=== PATIENT | female | born 1990 | race Caucasian/White ===

== ENCOUNTER 2022-08-23 04:41 | Observation (INO) ==
[2022-08-23] MEDS ORDERED: SODIUM CHLORIDE 0.9% 1000ML 1,000 ML IV ONE (04:58)
[2022-08-23] MEDS ORDERED: diphenhydrAMINE 50 MG/ML VIAL IV STA (04:58)
[2022-08-23] MEDS ORDERED: FAMOTIDINE 20MG IV PUSH 20 MG/5 ML SYR IV STA (04:58)
[2022-08-23] MEDS ORDERED: EPINEPHrine INJ 1 MG/ML AMP IM STA ×2 (04:58→06:17)
[2022-08-23] MEDS ORDERED: dexAMETHasone**PF** 10 MG/ML VIAL IV ONE (04:58)
--- NOTE | 2022-08-23 05:02 | Emergency Department Note ---
Impression & Plan Anaphylaxis, Allergic drug reaction, Dental abscess ED Provider Note Name: SIMONA POTTS Age: 32 Sex: F Arrives Via: Walk-In Informant: Patient ED Provider: Mario Wright MD Chief Complaint: Rash Impression: As per impressions above Medical Decision Makin-year-old healthy female arrives for evaluation of diffuse rash. Patient was seen here in the ED 4 days ago for allergic reaction to Augmentin that she had been on for dental abscess. She had been given steroids Pepcid and 3-day course of prednisone and switched from Augmentin to clinda. Patient notes initially improving though this morning had significant worsening of her rash. Notes diffuse rash, mild chest tightness. No significant difficulty with breathing on examination however given the degree of her rash and the swelling in her years the lower lip I felt that epinephrine was indicated. Patient was also given Decadron, Benadryl, Pepcid, IV fluids. She did have mild improvement though after about an hour rash started returning she was given another dose of IM epinephrine. She is not hypotensive she is not having significant respiratory distress thus would hold off on epinephrine drip however in the setting of recurrence and degree I do feel that she will require hospitalization and prolonged monitoring. Patient is comfortable with this plan. I did obtain basic laboratory work-up which is essentially unremarkable and mild white blood cell count elevation is consistent with recent steroid use. She is not septic or in septic shock at this time. Triage/Nursing Notes reviewed by Me Differentials:Allergic reaction, anaphylaxis, urticaria, Serna-Sujit syndrome, toxic epidermal necrolysis, erythema multiforme, contact dermatitis, cellulitis, as well as other pathologies. Vital Signs: reviewed and remarkable for no significant abnormalities Interventions: Epinephrine 0.5 mg IM, epinephrine 0.3 mg IM, Decadron 10 mg IV, Benadryl 50 mg IV, Pepcid 20 mg IV, normal saline bolus 1 L Labs:Reviewed and remarkable for essentially unremarkable CBC, BMP, LFTs Consults:Dr Topher Carlos hospitalist service Plan: Disposition:Hospitalization. Condition: Good History of Present Illness:32-year-old female arrives for evaluation of allergic reaction. Patient was being treated with Augmentin for a left upper dental abscess and developed a rash 3 days ago. She was seen in the ER and treated with steroids and Pepcid. She was switched to clindamycin. She has been on steroids and using as needed Benadryl with some improvement. Over the last few hours though rapid worsening of rash. She has diffuse rash and hives. She notes significant itching. Mild swelling of her lips and ears. She does have a dental abscess that is not causing her much discomfort at this point. No fevers, chills, syncope. Does note that her chest feels relatively tight and feels like it is tough to take a deep breath but she is not having any specific breathing discomfort. No swelling in her hands or feet. No significant history of allergies previously other than this new allergy to Augmentin. She took Benadryl earlier in the evening without much improvement. Past History:No significant past medical history Home Medications:Currently on clindamycin. Just finished prednisone Allergies:Augmentin Vitals:Blood Pressure: 147/91, Pulse 99, RR 18, T 37.1C, O2 99% on RA Physical Exam: GENERAL: Patient is anxious appearing and in moderate distress. EYES: No scleral icterus, unremarkable pupils. ENT: Mucous membranes moist, no nasal congestion. Mild swelling of lower lip and bilateral ears. There is a 1 cm dental abscess palpable above the left lateral gumline nontender no crepitus NECK: No masses appreciated, nomeningismus, trachea is midline. RESPIRATORY: No dyspnea. Clear to auscultation and equal bilaterally. No wheeze, no rhonchi. CARDIOVASCULAR: Tachycardia.No murmurs, rubs, gallops appreciated. EXTREMITIES: Normal motion all extremities, no cyanosis, no edema. NEUROLOGIC: Alert and oriented, no focal neurologic deficit appreciated SKIN: Diffuse erythema of face, neck, chest, back with small papular rash over most of legs and arms coalescing into larger hives in places. PSYCH: Appropriate though moderately anxious GCS: 15 ED Course: Times/Reassessments: Initially improving however after about an hour started worsening and thus was given second dose of epi. Patient did improve somewhat after this. She is agreeable to hospitalization for further management and monitoring Critical Care: I have personally spent 35 minutes of critical care time in the direct management of this patient. Acute anaphylaxis requiring multiple rounds of epinephrine IM. This was a life/limb threatening event. This 35 minutes is in excess of all separately billable procedures. Mario Wright MD Past Med/Surg History Social History Smoking Status: Never smoker Hx Alcohol Use: Yes Hx Substance Use: Yes Last Used Substance: Days (ago) Last Used Substance Other:: about 10 days ago. Substance Use Type Other:: Smokes medical marijuana some days. Preferred Language: Kyrgyz Communication Ability: Effective Transport Specialist Required: No Beliefs That Will Affect Care: None Current Living Situation: Spouse Feels Safe at Home: Yes Assistive Devices: None Allergies Allergies Allergy/AdvReac Type Severity Reaction Status Date / Time amoxicillin [From Augmentin] Allergy Severe Severe Unverified 08/23/22 08:18 full body rash clavulanic acid Allergy Severe Severe Unverified 08/23/22 08:18 [From Augmentin] full body rash Penicillins Allergy Severe Hives Verified 08/23/22 11:35 Home Meds Home Medications Medication Instructions Recorded Confirmed azelastine 0.05 % eye drops 1 drp OPB BID PRN Allergy Symptoms 08/23/22 08/23/22 norethindrone acetate 1 mg-ethinyl 1 tab PO DAILY 08/23/22 08/23/22 estradiol 20 mcg tablet (Junel) Previous Rx's Medication Instructions Recorded clindamycin HCl 150 mg capsule 450 mg PO Q8H 10 days #90 caps 08/21/22 prednisone 10 mg tablet See Rx Instructions .Route 08/24/22 .COMPLEX #18 tabs Results & Data (ED) Vital Signs Vital Signs - 24 hr 08/23/22 04:43 08/23/22 05:18 08/23/22 05:27 Temperature 37.1 C Temperature Source Temporal Artery Scan Pulse Rate 99 H 97 H Pulse Rate [Apical] 85 Pulse Rhythm Regular Pulse Strength Normal Respiratory Rate 18 20 Respiratory Effort / Characteristics Non-Labored Spontaneous Non-Labored Spontaneous Respiratory Depth Normal Normal Respiratory Pattern Regular Blood Pressure 147/91 H Blood Pressure [Right Arm] 126/83 Blood Pressure Mean 109 Blood Pressure Mean [Right Arm] 97 Blood Pressure Position Sitting Blood Pressure Position [Right Arm] Sitting Pulse Oximetry 99 100 Oxygen Delivery Method Room Air Room Air Sepsis Recent Fever Within 48 Hours No Sepsis New/Unexplained Change in Mental Status No Sepsis Action Taken by Nursing No Action Required 08/23/22 06:42 Temperature Temperature Source Pulse Rate Pulse Rate [Apical] 84 Pulse Rhythm Pulse Strength Respiratory Rate 18 Respiratory Effort / Characteristics Non-Labored Spontaneous Respiratory Depth Normal Respiratory Pattern Blood Pressure Blood Pressure [Right Arm] 132/79 Blood Pressure Mean Blood Pressure Mean [Right Arm] 96 Blood Pressure Position Blood Pressure Position [Right Arm] Sitting Pulse Oximetry 100 Oxygen Delivery Method Room Air Sepsis Recent Fever Within 48 Hours Sepsis New/Unexplained Change in Mental Status Sepsis Action Taken by Nursing Laboratory Data 08/23/22 05:06 08/23/22 05:06 Lab Results 08/23/22 08/23/22 08/23/22 Range/Units 05:06 05:06 05:06 WBC 12.74 H (4.8-10.8) K/ul RBC 4.64 (4.20-5.40) M/uL Hgb 14.3 (12.0-16.0) g/dl Hct 41.7 (37.0-47.0) % MCV 89.9 (80.0-100.0) fL MCH 30.8 (25.0-34.0) pg MCHC 34.3 (32.0-36.0) g/dL RDW Std Deviation 39.3 (36.4-46.3) fL RDW Coeff of Lindsay 12.0 (11.5-14.5) % Plt Count 237 (130-400) K/uL MPV 10.0 (9.4-12.4) fL Immature Gran % (Auto) 0.2 % Neut % (Auto) 68.5 % Lymph % (Auto) 15.8 % Newberry % (Auto) 8.4 % Eos % (Auto) 6.8 % Baso % (Auto) 0.3 % Neut # (Auto) 8.72 H (1.40-6.50) K/uL Lymph # (Auto) 2.01 (1.2-3.4) K/uL Newberry # (Auto) 1.07 H (0.11-0.59) K/uL Eos # (Auto) 0.87 H (0-0.50) K/uL Baso # (Auto) 0.04 (0-0.2) K/uL Immature Gran # (Auto) 0.03 (0.01-0.20) K/uL Sodium 140 (136-145) mmol/L Potassium 3.6 (3.5-5.1) mmol/L Chloride 106 (98-107) mmol/L Carbon Dioxide 25 (21-32) mmol/L Anion Gap 9 (3-11) BUN 13 (6-23) mg/dl Creatinine 1.07 (0.6-1.2) mg/dl Est Cr Clr Drug Dosing 75.5 ml/min Est GFR ( Amer) 79.0 ml/min Est GFR (Non-Af Amer) 68.2 ml/min BUN/Creatinine Ratio 12.1 (10-20) Glucose 76 (70-99(Fasting)) mg/dl Lactate 1.2 (0.4-2.0) mmol/L Calcium 9.8 (8.6-10.3) mg/dl Total Bilirubin 0.7 (0.2-1.0) mg/dl Direct Bilirubin 0.1 (0-0.2) mg/dl AST 13 (13-39) U/L ALT 14 (7-52) U/L Alkaline Phosphatase 53 (34-104) U/L Troponin I High Sens 3.4 (0-14) pg/ml Total Protein 7.3 (6.0-8.3) gm/dl Albumin 4.4 (3.4-5.0) gm/dl Procalcitonin (0-0.5) ng/ml 08/23/22 Range/Units 05:06 WBC (4.8-10.8) K/ul RBC (4.20-5.40) M/uL Hgb (12.0-16.0) g/dl Hct (37.0-47.0) % MCV (80.0-100.0) fL MCH (25.0-34.0) pg MCHC (32.0-36.0) g/dL RDW Std Deviation (36.4-46.3) fL RDW Coeff of Lindsay (11.5-14.5) % Plt Count (130-400) K/uL MPV (9.4-12.4) fL Immature Gran % (Auto) % Neut % (Auto) % Lymph % (Auto) % Newberry % (Auto) % Eos % (Auto) % Baso % (Auto) % Neut # (Auto) (1.40-6.50) K/uL Lymph # (Auto) (1.2-3.4) K/uL Newberry # (Auto) (0.11-0.59) K/uL Eos # (Auto) (0-0.50) K/uL Baso # (Auto) (0-0.2) K/uL Immature Gran # (Auto) (0.01-0.20) K/uL Sodium (136-145) mmol/L Potassium (3.5-5.1) mmol/L Chloride (98-107) mmol/L Carbon Dioxide (21-32) mmol/L Anion Gap (3-11) BUN (6-23) mg/dl Creatinine (0.6-1.2) mg/dl Est Cr Clr Drug Dosing ml/min Est GFR ( Amer) ml/min Est GFR (Non-Af Amer) ml/min BUN/Creatinine Ratio (10-20) Glucose (70-99(Fasting)) mg/dl Lactate (0.4-2.0) mmol/L Calcium (8.6-10.3) mg/dl Total Bilirubin (0.2-1.0) mg/dl Direct Bilirubin (0-0.2) mg/dl AST (13-39) U/L ALT (7-52) U/L Alkaline Phosphatase (34-104) U/L Troponin I High Sens (0-14) pg/ml Total Protein (6.0-8.3) gm/dl Albumin (3.4-5.0) gm/dl Procalcitonin < 0.05 (0-0.5) ng/ml Administered Medications Discontinued Medications Dexamethasone Sodium Phosphate (DexamethasonePf 10 Mg/Ml Vial) 10 mg IV NOW ONE Stop: 08/23/22 04:59 Last Admin: 08/23/22 05:04 Dose: 10 mg Documented By: CC Diphenhydramine HCl (Diphenhydramine 50 Mg/Ml Vial) 50 mg IV NOW STA Stop: 08/23/22 04:59 Last Admin: 08/23/22 05:04 Dose: 50 mg Documented By: CC Epinephrine HCl (Epinephrine Inj 1 Mg/Ml Amp) 0.5 mg IM NOW STA Stop: 08/23/22 04:59 Last Admin: 08/23/22 05:04 Dose: 0.5 mg Documented By: CC Epinephrine HCl (Epinephrine Inj 1 Mg/Ml Amp) 0.3 mg IM NOW STA Stop: 08/23/22 06:18 Last Admin: 08/23/22 06:29 Dose: 0.3 mg Documented By: FLOWER Famotidine (Pepcid 20mg Iv Push) 20 mg in 5 mls @ 2.5 mls/min IV NOW STA Stop: 08/23/22 04:59 Last Admin: 08/23/22 05:04 Dose: 2.5 mls/min Documented By: CHUCK Sodium Chloride (Nss 1000ml) 1,000 mls @ 999 mls/hr IV .Q1H1M ONE Stop: 08/23/22 05:58 Last Infusion: 08/23/22 06:43 Dose: 0 mls/hr Documented By: Admin: 08/23/22 05:07 Dose: 999 mls/hr Documented By: CHUCK Methylprednisolone 60 mg/ (Syringe) 1.5 mls @ 1.5 mls/min IV Q6H SHARON Stop: 09/22/22 09:59 Last Admin: 08/23/22 10:46 Dose: Not Given Documented By: FREDY Clindamycin Phosphate (Cleocin/D5w) 600 mg in 50 mls @ 100 mls/hr IV Q8H SHARON Stop: 09/02/22 09:59 Last Admin: 08/24/22 13:09 Dose: 100 mls/hr Documented By: Infusion: 08/24/22 05:08 Dose: 0 mls/hr Documented By: Admin: 08/24/22 04:38 Dose: 100 mls/hr Documented By: Infusion: 08/23/22 20:45 Dose: 0 mls/hr Documented By: RLRamón Admin: 08/23/22 20:23 Dose: 100 mls/hr Documented By: Infusion: 08/23/22 13:05 Dose: 0 mls/hr Documented By: Admin: 08/23/22 12:34 Dose: 100 mls/hr Documented By: FREDY Methylprednisolone 60 mg/ (Syringe) 0.96 mls @ 1.5 mls/min IV Q6H SHARON Stop: 09/22/22 10:44 Last Admin: 08/24/22 13:10 Dose: 1.5 mls/min Documented By: Admin: 08/24/22 05:12 Dose: 1.5 mls/min Documented By: Admin: 08/23/22 23:04 Dose: 1.5 mls/min Documented By: Admin: 08/23/22 18:25 Dose: 1.5 mls/min Documented By: Admin: 08/23/22 13:27 Dose: 1.5 mls/min Documented By: FREDY Discharge Plan Visit Data Chief Complaint: Allergic Reaction Stated Complaint: ALLERGIC REACTION SINCE SAT - RASH GETTING WORSE ED Provider: Mario Wright Discharge Problem: Anaphylaxis, Allergic drug reaction, Dental abscess Patient Disposition: Admitted As Inpatient Discharge Instructions Interventions: ED Discharge Assessment Last Done: 08/23/22 09:50 Anaphylaxis Qualifiers: Encounter type: initial encounter Qualified Code(s): T78.2XXA - Anaphylactic shock, unspecified, initial encounter Allergic drug reaction Qualifiers: Encounter type: initial encounter Qualified Code(s): T78.40XA - Allergy, unspecified, initial encounter
[2022-08-23 05:22] LABS: Basophils # (auto) 0.04 K/uL (0-0.2); Basophils % (auto) 0.3 %; Eosinophils # (auto) 0.87 K/uL (0-0.50); Eosinophils % (auto) 6.8 %; Hematocrit (blood only) 41.7 % (37.0-47.0); Hemoglobin 14.3 g/dl (12.0-16.0); Immature Granulocytes # (auto) 0.03 K/uL (0.01-0.20); Immature Granulocytes % (auto) 0.2 %; Lymphocytes # (auto) 2.01 K/uL (1.2-3.4); Lymphocytes % (auto) 15.8 %; Mean Corpuscular Hemoglobin 30.8 pg (25.0-34.0); Mean Corpuscular Hgb Conc 34.3 g/dL (32.0-36.0); Mean Corpuscular Volume 89.9 fL (80.0-100.0); Monocytes # (auto) 1.07 K/uL (0.11-0.59); Monocytes % (auto) 8.4 %; Neutrophils # (auto) 8.72 K/uL (1.40-6.50); Neutrophils % (auto) 68.5 %; Platelet Count 237 K/uL (130-400); RDW Standard Deviation 39.3 fL (36.4-46.3); Red Blood Count 4.64 M/uL (4.20-5.40); White Blood Count 12.74 K/ul (4.8-10.8)
[2022-08-23 05:38] LABS: Albumin Level 4.4 gm/dl (3.4-5.0); BUN Creatinine Ratio 12.1 (10-20); Bilirubin Direct 0.1 mg/dl (0-0.2); Bilirubin,Total 0.7 mg/dl (0.2-1.0); Calcium 9.8 mg/dl (8.6-10.3); Creatinine Clr Calc Pharmacy 75.5 ml/min; Est GFR (Non-African American) 68.2 ml/min; Potassium 3.6 mmol/L (3.5-5.1); Total Protein 7.3 gm/dl (6.0-8.3)
[2022-08-23 05:44] LABS: Troponin I High Sensitivity 3.4 pg/ml (0-14)
--- NOTE | 2022-08-23 09:03 | History & Physical Report ---
Date of Service August 23, 2022 Assessment & Plan (1) Cellulitis and abscess of face: Plan: Left maxillary tooth abscess with associated left facial cellulitis. Intraven ous clindamycin while hospitalized then home on oral clindamycin (2) Anxiety: Plan: Lorazepam as needed (3) Rash: Plan: Due to apparent penicillin reaction. Intravenous steroids (4) Allergic reaction: Plan: Augmentin has been discontinued. She is now on Cleocin Plan Intravenous steroid therapy. Lorazepam as needed. Augmentin has been discon tinued. She is now on Cleocin. Hopefully home tomorrow, August 24 History of Present Illness Chief Complaint: Suspected penicillin reaction Primary Care Provider: NO PCP 32-year-old female who was treated with Augmentin for a left maxillary dental a bscess and associated facial cellulitis. Several days ago she stopped the Augmentin because she developed a pruritic rash over her entire body. She was placed on clindamycin orally. Symptoms have progressed and she came to the ED for evaluation. She was given epinephrine in the ED along with dexamethasone. She is in no acute distress at the time of my evaluation but will need to be placed in observation for continued steroid therapy and probably will go home tomorrow on a prednisone tapering dose Allergies Allergy/AdvReac Type Severity Reaction Status Date / Time amoxicillin [From Augmentin] Allergy Severe Severe Unverified 08/23/22 08:18 full body rash clavulanic acid Allergy Severe Severe Unverified 08/23/22 08:18 [From Augmentin] full body rash Home Medications Medication Instructions Recorded Confirmed Type clindamycin HCl 150 mg capsule 450 mg PO Q8H 10 days #90 caps 08/21/22 08/23/22 Rx prednisone 50 mg tablet 50 mg PO DAILY 3 days #3 tabs 08/21/22 08/23/22 Rx azelastine 0.05 % eye drops 1 drp OPB BID PRN Allergy Symptoms 08/23/22 08/23/22 History norethindrone acetate 1 mg-ethinyl 1 tab PO DAILY 08/23/22 08/23/22 History estradiol 20 mcg tablet () Past Med/Surg History Social History Smoking Status: Current some day smoker Hx Alcohol Use: No Hx Substance Use: No Preferred Language: Tajik Feels Safe at Home: Yes Review of Systems Review of Systems: Constitutional-no fever or chills ENT-no blurred vision, no double vision, no epistaxis, no sore throat Respiratory-no cough, no wheezing, no shortness of breath Cardiac-no palpitations, no chest pain, no syncope GI-no nausea, vomiting, diarrhea, melena, hematochezia -no urinary retention, no urinary incontinence, no dysuria, no hematuria Musculoskeletal-no joint pain, no muscle tenderness Skin-diffuse pruritic rash Neuro-no isolated weakness, no paresthesia, no weakness Psych-no depression, no anxiety Physical Exam Physical Exam: General-alert and oriented x3, no fevers, no chills HEENT-head atraumatic and normocephalic, the left side of her face is mildly swollen without erythema, pupils equal and reactive to light, extraocular muscles intact Neck-no lymphadenopathy or thyromegaly, trachea midline Chest-clear to auscultation percussion. No rales , wheezing or rhonchi Cardiac-regular rate and rhythm, normal S1 and S2 Abdomen-normal bowel sounds, nontender, no hepatosplenomegaly Extremities-no cyanosis, clubbing, or edema Skinnon- confluent blanching pruritic maculopapular diffuse rash on trunk and all extremities Neuro-cranial nerves II through XII intact, motor and sensory function within normal limits, strength symmetrical , no focal deficits Psych-normal affect, normal mood Results & Data Results & Data Vital Signs (Past 12 Hours) Vital Signs Temp Pulse Pulse Resp BP BP Pulse Ox 08/23/22 08:30 92 H 24 99 08/23/22 08:30 121/62 08/23/22 08:00 79 18 98 08/23/22 08:00 135/72 08/23/22 07:30 87 19 99 08/23/22 07:30 132/69 08/23/22 07:00 77 17 99 08/23/22 07:00 126/75 08/23/22 06:38 91 H 20 97 08/23/22 06:38 132/79 08/23/22 06:30 98 H 12 100 08/23/22 06:30 120/83 08/23/22 06:00 73 16 100 08/23/22 06:00 124/67 08/23/22 05:30 72 24 97 08/23/22 05:30 121/75 08/23/22 05:05 115 H 12 100 08/23/22 06:42 84 18 132/79 100 08/23/22 05:27 97 H 08/23/22 05:18 85 20 126/83 100 08/23/22 04:43 37.1 C 99 H 18 147/91 H 99 O2 Del Method 08/23/22 08:30 08/23/22 08:30 08/23/22 08:00 08/23/22 08:00 08/23/22 07:30 08/23/22 07:30 08/23/22 07:00 08/23/22 07:00 08/23/22 06:38 08/23/22 06:38 08/23/22 06:30 08/23/22 06:30 08/23/22 06:00 08/23/22 06:00 08/23/22 05:30 08/23/22 05:30 08/23/22 05:05 08/23/22 06:42 Room Air 08/23/22 05:27 08/23/22 05:18 Room Air 08/23/22 04:43 Room Air Laboratory Results 08/23/22 05:06 08/23/22 05:06 PG Care Time/CCT Total # of Minutes Spent Total Time Spent with Patient: Total time spent is greater than 50% in coordination of care (as documented) at patient's floor/unit and/or counseling patient: Coding Level of Care Code 07916 INT INP/OBS CARE 3/75MIN Diagnoses Cellulitis and abscess of face L03.211; L02.01 Anxiety F41.9 Rash R21 Allergic reaction T78.40XA
[2022-08-23] MEDS ORDERED: LORazepam 1 MG TAB PO PRN (10:00)
[2022-08-23] MEDS ORDERED: methylPREDNISolone 60 MG in SYRINGE 0 ML IV SCH (10:00)
[2022-08-23 10:23] LABS: Hematocrit (blood only) 41.3 % (37.0-47.0); Hemoglobin 14.1 g/dl (12.0-16.0); Mean Corpuscular Hemoglobin 31.1 pg (25.0-34.0); Mean Corpuscular Hgb Conc 34.1 g/dL (32.0-36.0); Mean Corpuscular Volume 91.2 fL (80.0-100.0); Mean Platelet Volume 9.8 fL (9.4-12.4); Platelet Count 225 K/uL (130-400); RDW Standard Deviation 39.8 fL (36.4-46.3); Red Blood Count 4.53 M/uL (4.20-5.40); White Blood Count 13.42 K/ul (4.8-10.8)
[2022-08-23 10:35] LABS: BUN Creatinine Ratio 11.2 (10-20); Calcium 9.3 mg/dl (8.6-10.3); Creatinine Clr Calc Pharmacy 82.4 ml/min; Est GFR (African American) 87.8 ml/min; Est GFR (Non-African American) 75.8 ml/min; Potassium 3.5 mmol/L (3.5-5.1)
[2022-08-23 10:42] LABS: Basophils # (auto) 0.02 K/uL (0-0.2); Basophils % (auto) 0.1 %; Eosinophils # (auto) 0.04 K/uL (0-0.50); Eosinophils % (auto) 0.3 %; Immature Granulocytes # (auto) 0.05 K/uL (0.01-0.20); Immature Granulocytes % (auto) 0.4 %; Lymphocytes # (auto) 0.53 K/uL (1.2-3.4); Lymphocytes % (auto) 3.9 %; Monocytes # (auto) 0.21 K/uL (0.11-0.59); Monocytes % (auto) 1.6 %; Neutrophils # (auto) 12.57 K/uL (1.40-6.50); Neutrophils % (auto) 93.7 %
[2022-08-23] MEDS: CLINDAMYCIN/D5W 600 MG/50 ML BAG IV SCH ×2 (12:34→20:23)
[2022-08-23] MEDS: methylPREDNISolone 60 MG in SYRINGE 0 ML IV SCH ×3 (13:27→23:04)
[2022-08-24] MEDS: CLINDAMYCIN/D5W 600 MG/50 ML BAG IV SCH ×2 (04:38→13:09)
[2022-08-24] MEDS: methylPREDNISolone 60 MG in SYRINGE 0 ML IV SCH ×2 (05:12→13:10)
[2022-08-24 06:20] LABS: Basophils # (auto) 0.02 K/uL (0-0.2); Basophils % (auto) 0.2 %; Hematocrit (blood only) 41.3 % (37.0-47.0); Hemoglobin 13.8 g/dl (12.0-16.0); Immature Granulocytes # (auto) 0.04 K/uL (0.01-0.20); Immature Granulocytes % (auto) 0.4 %; Lymphocytes # (auto) 1.11 K/uL (1.2-3.4); Lymphocytes % (auto) 10.3 %; Mean Corpuscular Hemoglobin 30.7 pg (25.0-34.0); Mean Corpuscular Hgb Conc 33.4 g/dL (32.0-36.0); Mean Corpuscular Volume 91.8 fL (80.0-100.0); Mean Platelet Volume 10.3 fL (9.4-12.4); Monocytes # (auto) 0.28 K/uL (0.11-0.59); Monocytes % (auto) 2.6 %; Neutrophils # (auto) 9.37 K/uL (1.40-6.50); Neutrophils % (auto) 86.5 %; Platelet Count 223 K/uL (130-400); RDW Standard Deviation 40.1 fL (36.4-46.3); White Blood Count 10.82 K/ul (4.8-10.8)
[2022-08-24 07:00] LABS: Calcium 9.7 mg/dl (8.6-10.3); Creatinine Clr Calc Pharmacy 89.2 ml/min; Est GFR (African American) 96.1 ml/min; Est GFR (Non-African American) 82.9 ml/min
--- NOTE | 2022-08-24 12:07 | Discharge Summary ---
Date of Service August 24, 2022 Admission HPI Per Admitting Provider 32-year-old female who was treated with Augmentin for a left maxillary dental abscess and associated facial cellulitis. Several days ago she stopped the Augmentin because she developed a pruritic rash over her entire body. She was placed on clindamycin orally. Symptoms have progressed and she came to the ED for evaluation. She was given epinephrine in the ED along with dexamethasone. She is in no acute distress at the time of my evaluation but will need to be placed in observation for continued steroid therapy and probably will go home tomorrow on a prednisone tapering dose Principal Diagnosis Diffuse rash and pruritus from penicillin allergic reaction, left maxillary dental abscess Discharge Exam General-alert and oriented x3, no fevers, no chills HEENT-head atraumatic and normocephalic, the left side of her face is mildly swollen without erythema, pupils equal and reactive to light, extraocular musc les intact Neck-no lymphadenopathy or thyromegaly, trachea midline Chest-clear to auscultation percussion. No rales , wheezing or rhonchi Cardiac-regular rate and rhythm, normal S1 and S2 Abdomen-normal bowel sounds, nontender, no hepatosplenomegaly Extremities-no cyanosis, clubbing, or edema Skinnon- confluent blanching pruritic maculopapular diffuse rash on trunk and all extremities Neuro-cranial nerves II through XII intact, motor and sensory function within normal limits, strength symmetrical , no focal deficits Psych-normal affect, normal mood Discharge Data Allergies Allergy/AdvReac Type Severity Reaction Status Date / Time amoxicillin [From Augmentin] Allergy Severe Severe Unverified 08/23/22 08:18 full body rash clavulanic acid Allergy Severe Severe Unverified 08/23/22 08:18 [From Augmentin] full body rash Penicillins Allergy Severe Hives Verified 08/23/22 11:35 Consultations 08/23/22 06:41 ED Decision to Admit Stat Hospital Course (1) Cellulitis and abscess of face: Left maxillary tooth abscess with associated left facial cellulitis. Treated with intravenous clindamycin while hospitalized then home on oral clindamycin. Improving (2) Anxiety: Lorazepam as needed. Controlled (3) Rash: Due to apparent penicillin reaction. Intravenous steroids have helped considerably. She will be discharged on a prednisone tapering dose (4) Allergic reaction: Augmentin has been discontinued. She is now on Cleocin Plan Home today on a prednisone tapering dose and oral Cleocin, August 24 Total Time Total Time Spent Total Time Spent (In Minutes): 40 minutes Discharge Plan Discharge Items Patient Disposition: Home - Self-Care Reason For Visit: ALLERGIC REACTION SINCE SAT - RASH GETTING WORSE Discharge Diagnosis: Diffuse pruritic rash due to penicillin allergic reaction, left maxillary dental abscess Activity: Resume your previous activity Non-emergency contact: Primary Care Provider Call non-emergency contact if: your symptoms worsen Follow-up/Referrals: PCP,NO [Primary Care Provider] - Diet: Regular Addtl Attending Provider Instructions: Take Cleocin (clindamycin) 450 mg as directed. Take prednisone in a tapering dose fashion as directed Pending Studies at Discharge: No Stand-Alone Forms: [facility], Smoking Cessation Medications and DC Order Prescriptions: New prednisone 10 mg tablet See Rx Instructions .ROUTE .COMPLEX Qty: 18 0RF Rx Instructions: 10 mg orally 3 times a day for 3 days, then 10 mg twice a day for 3 days, then 10 mg once a day for 3 days, then stop Continued clindamycin HCl 150 mg capsule 450 mg PO Q8H 10 Days Qty: 90 0RF azelastine 0.05 % drops 1 drp OPB BID PRN (Reason: Allergy Symptoms) norethindrone ac-eth estradiol [03/17 (21)] 1-20 mg-mcg tablet 1 tab PO DAILY Discontinued prednisone 50 mg tablet 50 mg PO DAILY 3 Days Qty: 3 0RF Discharge Orders: Discharge Order (Routine); Ordered 08/24/22 Ordered By: Don Richards Admission Data Admit Date/Time: 08/23/22 08:55 Attending Provider: Don Richards Admit Provider: Don Richards Primary Care Provider: PCP,NO Other Providers: Caitlin Obando Coding Level of Care Code 12057 INP/OBS DISCH >30 MIN Diagnoses Cellulitis and abscess of face L03.211; L02.01 Anxiety F41.9 Rash R21 Allergic reaction T78.40XA
== END 2022-08-24 15:20 | disposition home or self-care (01) ==
LOC: ED 04:41 → 3N 04:41

== ENCOUNTER 2022-08-26 14:45 | Inpatient (IN) ==
[2022-08-26 15:38] LABS: Basophils # (auto) 0.02 K/uL (0-0.2); Basophils % (auto) 0.2 %; Eosinophils # (auto) 0.27 K/uL (0-0.50); Eosinophils % (auto) 2.3 %; Hematocrit (blood only) 48.7 % (37.0-47.0); Hemoglobin 16.9 g/dl (12.0-16.0); Immature Granulocytes # (auto) 0.05 K/uL (0.01-0.20); Immature Granulocytes % (auto) 0.4 %; Lymphocytes # (auto) 1.45 K/uL (1.2-3.4); Lymphocytes % (auto) 12.1 %; Mean Corpuscular Hemoglobin 30.8 pg (25.0-34.0); Mean Corpuscular Hgb Conc 34.7 g/dL (32.0-36.0); Mean Corpuscular Volume 88.7 fL (80.0-100.0); Mean Platelet Volume 9.9 fL (9.4-12.4); Monocytes # (auto) 0.84 K/uL (0.11-0.59); Neutrophils # (auto) 9.37 K/uL (1.40-6.50); Platelet Count 276 K/uL (130-400); RDW Coefficient of Variation 11.9 % (11.5-14.5); RDW Standard Deviation 38.8 fL (36.4-46.3); Red Blood Count 5.49 M/uL (4.20-5.40)
[2022-08-26 16:00] LABS: Albumin Globulin Ratio 1.3 (0.9-2); Albumin Level 4.7 gm/dl (3.4-5.0); BUN Creatinine Ratio 12.8 (10-20); Bilirubin,Total 1.2 mg/dl (0.2-1.0); Calcium 10.1 mg/dl (8.6-10.3); Creatinine Clr Calc Pharmacy 72.9 ml/min; Est GFR (African American) 77.2 ml/min; Est GFR (Non-African American) 66.6 ml/min; Globulin 3.7 gm/dl (2.5-4.0); Potassium 3.9 mmol/L (3.5-5.1); Total Protein 8.4 gm/dl (6.0-8.3)
--- NOTE | 2022-08-26 16:10 | Emergency Department Note ---
History of Present Illness General Chief complaint: Dental/Oral Stated complaint: INFECTED TOOTH, SWOLLEN FACE, REFERRED BY DOC Time Seen by Provider: 08/26/22 16:08 History of Present Illness This 32-year-old female patient presents to the emergency department for evaluation of a known dental abscess to the left upper tooth #13 as well as a facial cellulitis/abscess. She was initially seen in the emergency department on 08/17/2022 for left facial swelling with dental pain that had been going on for 1 week at that time and had been on 1.[address] scan of the face with contrast in the ER on 08/17/2022 demonstrated a small periapical cyst of the left maxillary second bicuspid with associated dental carry. There is evidence of a left facial cellulitis with a 2.2 cm abscess in the maxillary region. The patient followed up by phone with Dr. Schmidt of oral maxillofacial surgery, but per the patient he did not feel he needed to see the patient right away as she had just started antibiotics. She then returned to the emergency department on 08/21/2022 for what appeared to be an allergic reaction to the Augmentin. The Augmentin was stopped and she was started on steroids Pepcid. Her Augmentin was switched to clindamycin. She was seen again in the emergency department on 08/23/2022 for worsening rash with mild chest tightness. She required epinephrine, Decadron, Benadryl, Pepcid, and IV fluids for treatment of her symptoms. She was then admitted for approximately 36 hours for further management of her allergic reaction. She has now been on clindamycin for the past 5 days with her last dose at 7 am. However, her symptoms seem to be worsening over the last 48 hours. The swelling has gotten worse and she states that her face feels much harder now. She states that she was seen by her dentist today in [place] who did x-rays and was referred to the ER for IV antibiotics. She states that her dentist told her that the abscess seems to be "too hard" to drain right now and feels that she needs to have IV antibiotics to get the infection under control prior to a root canal. No fevers. No discharge from the mouth. No trouble swallowing, breathing, or SOB. Denies chest pain, abdominal pain, or vomiting. Mild nausea. Home Medications Medication Instructions Recorded Confirmed Type clindamycin HCl 150 mg capsule 450 mg PO Q8H 10 days #90 caps 08/21/22 08/26/22 Rx azelastine 0.05 % eye drops 1 drp OPB BID PRN Allergy Symptoms 08/23/22 08/26/22 History norethindrone acetate 1 mg-ethinyl 1 tab PO DAILY 08/23/22 08/26/22 History estradiol 20 mcg tablet (Junel) prednisone 10 mg tablet See Rx Instructions .Route 08/24/22 08/26/22 Rx .COMPLEX #18 tabs Allergies Allergy/AdvReac Type Severity Reaction Status Date / Time amoxicillin [From Augmentin] Allergy Severe Severe Unverified 08/26/22 16:51 full body rash clavulanic acid Allergy Severe Severe Unverified 08/26/22 16:51 [From Augmentin] full body rash Penicillins Allergy Severe Hives Verified 08/26/22 16:51 Past Med/Surg History Medical History No pertinent past medical history Surgical History H/O wisdom tooth extraction Social History Smoking Status: Never smoker Hx Alcohol Use: Yes Hx Substance Use: Yes Last Used Substance: Days (ago) Last Used Substance Other:: about 10 days ago. Substance Use Type Other:: Smokes medical marijuana some days. 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 Physical Exam Vital Signs Vital Signs - 24 hr 08/26/22 14:52 08/26/22 15:15 Temperature 36.8 C 37.0 C Temperature Source Temporal Artery Scan Oral Pulse Rate 90 Respiratory Rate 18 Respiratory Effort / Characteristics Non-Labored Spontaneous Respiratory Depth Normal Blood Pressure 159/112 H Blood Pressure Mean 127 Blood Pressure Position Sitting Pulse Oximetry 100 Oxygen Delivery Method Room Air Sepsis Recent Fever Within 48 Hours No Sepsis New/Unexplained Change in Mental Status N/A Sepsis Action Taken by Nursing No Action Required Vital Signs: Vitals are noted on the nurse's note and reviewed by myself. GENERAL: Non toxic in appearance and in no acute distress. SKIN: Capillary reflex less than 2 seconds. HEAD: Normocephalic, atraumatic. FACE: There is swelling and induration to the left side of the face over the left cheek and zygomatic area. No significant erythema or warmth. No lymphatic streaking. EARS: External auditory canals clear, tympanic membrane pearly lopez without erythema or effusion. No tragus tenderness. No mastoid tenderness. EYES: Pupils equal round and reactive to light and accommodation. Conjunctivae without injection, sclerae without icterus. Extraocular movements intact. NOSE: Patent, turbinates inflamed with no discharge. No sinus tenderness. MOUTH: There is erythema, edema, induration, and mild fluctuance of the gingival tissue surrounding the left upper teeth that extends towards the cheek. No active discharge. Mucous membranes moist. Airway patent, uvula midline. Tonsils are not enlarged and not erythematous without exudate. Pharynx without postnasal drip. No evidence for peritonsillar abscess. NECK: Supple without nuchal rigidity. No lymphadenopathy. No evidence for Altaf angina. HEART: Regular rate and rhythm without murmurs gallops or rubs. LUNGS: Clear to auscultation bilaterally without wheezes, rales or rhonchi. No accessory muscle use or retractions. NEURO: Patient was alert and oriented to person place and time. Course Administered Medications Parenteral Electrolytes (Plasma-Lyte A Ph 7.4) 1,000 mls @ 125 mls/hr IV .Q8H [facility] Stop: 08/27/22 11:13 Last Admin: 08/26/22 21:37 Dose: 125 mls/hr Documented By: BROCK Miscellaneous (Norethindrone Ac-Eth Estradiol [03/17 (21)] 1-20 Mg-Mcg Tab- Order Awaiting Action) 1 each N/A QS SHARON Stop: 09/25/22 19:59 Last Admin: 08/26/22 23:42 Dose: Not Given Documented By: Admin: 08/26/22 20:30 Dose: Not Given Documented By: BROCK Prednisone (Prednisone 10 Mg Tablet) 10 mg PO BID [facility] Stop: 09/25/22 20:59 Last Admin: 08/26/22 20:30 Dose: 10 mg Documented By: BROCK Discontinued Medications Sodium Chloride (Nss 1000ml) 1,000 mls @ 999 mls/hr IV .Q1H1M ONE Stop: 08/26/22 17:27 Last Infusion: 08/26/22 17:29 Dose: 0 mls/hr Documented By: Admin: 08/26/22 16:51 Dose: 999 mls/hr Documented By: JANNETH Clindamycin Phosphate (Cleocin/D5w) 900 mg in 50 mls @ 100 mls/hr IV NOW ONE Stop: 08/26/22 16:58 Last Infusion: 08/26/22 17:29 Dose: 0 mls/hr Documented By: Admin: 08/26/22 16:51 Dose: 100 mls/hr Documented By: JANNETH Ceftriaxone Sodium (Rocephin) 2,000 mg in 70 mls @ 140 mls/hr IV NOW STA Stop: 08/26/22 17:41 Last Infusion: 08/26/22 17:51 Dose: 0 mls/hr Documented By: Admin: 08/26/22 17:24 Dose: 140 mls/hr Documented By: NENA Metronidazole (Flagyl) 500 mg in 100 mls @ 100 mls/hr IV NOW STA; Protocol Stop: 08/26/22 18:11 Last Infusion: 08/26/22 19:24 Dose: 0 mls/hr Documented By: Admin: 08/26/22 17:48 Dose: 100 mls/hr Documented By: NENA Vancomycin HCl 1,750 mg/ (Sodium Chloride) 535 mls @ 200 mls/hr IV ONE ONE Stop: 08/26/22 20:10 Last Infusion: 08/26/22 21:59 Dose: 0 mls/hr Documented By: Admin: 08/26/22 18:41 Dose: 200 mls/hr Documented By: NENA Ketorolac Tromethamine (Ketorolac Tromethamine 15 Mg/Ml Vial) 15 mg IV NOW STA Stop: 08/26/22 16:22 Last Admin: 08/26/22 16:33 Dose: 15 mg Documented By: NENA Ondansetron HCl (Ondansetron Inj 2 Mg/Ml 2 Ml Vial) 4 mg IV NOW STA Stop: 08/26/22 16:22 Last Admin: 08/26/22 16:31 Dose: 4 mg Documented By: NENA Medical Decision Making Differential Diagnosis Differential diagnosis includes dental caries, periapical abscess, facial cellulitis, facial abscess, Altaf's angina, pharyngitis, referred pain, among others. Laboratory Data Attestation: I reviewed the patient's lab results. 08/26/22 15:20 08/26/22 15:20 Lab Results 08/26/22 08/26/22 08/26/22 Range/Units 15:20 15:20 16:35 WBC 12.00 H (4.8-10.8) K/ul RBC 5.49 H (4.20-5.40) M/uL Hgb 16.9 H (12.0-16.0) g/dl Hct 48.7 H (37.0-47.0) % MCV 88.7 (80.0-100.0) fL MCH 30.8 (25.0-34.0) pg MCHC 34.7 (32.0-36.0) g/dL RDW Std Deviation 38.8 (36.4-46.3) fL RDW Coeff of Lindsay 11.9 (11.5-14.5) % Plt Count 276 (130-400) K/uL MPV 9.9 (9.4-12.4) fL Immature Gran % (Auto) 0.4 % Neut % (Auto) 78.0 % Lymph % (Auto) 12.1 % [place] % (Auto) 7.0 % Eos % (Auto) 2.3 % Baso % (Auto) 0.2 % Neut # (Auto) 9.37 H (1.40-6.50) K/uL Lymph # (Auto) 1.45 (1.2-3.4) K/uL [place] # (Auto) 0.84 H (0.11-0.59) K/uL Eos # (Auto) 0.27 (0-0.50) K/uL Baso # (Auto) 0.02 (0-0.2) K/uL Immature Gran # (Auto) 0.05 (0.01-0.20) K/uL Sodium 140 (136-145) mmol/L Potassium 3.9 (3.5-5.1) mmol/L Chloride 101 (98-107) mmol/L Carbon Dioxide 29 (21-32) mmol/L Anion Gap 10 (3-11) BUN 14 (6-23) mg/dl Creatinine 1.09 (0.6-1.2) mg/dl Est Cr Clr Drug Dosing 72.9 ml/min Est GFR ( Amer) 77.2 ml/min Est GFR (Non-Af Amer) 66.6 ml/min BUN/Creatinine Ratio 12.8 (10-20) Glucose 93 (70-99(Fasting)) mg/dl Calcium 10.1 (8.6-10.3) mg/dl Total Bilirubin 1.2 H (0.2-1.0) mg/dl AST 14 (13-39) U/L ALT 15 (7-52) U/L Alkaline Phosphatase 62 (34-104) U/L Total Protein 8.4 H (6.0-8.3) gm/dl Albumin 4.7 (3.4-5.0) gm/dl Globulin 3.7 (2.5-4.0) gm/dl Albumin/Globulin Ratio 1.3 (0.9-2) SARS-CoV-2, RNA, NAAT NEGATIVE (NEGATIVE) MDM Narrative I examined the patient. An IV lock and blood work had already been initiated in triage per protocol. She was given 1 L normal saline solution bolus, Toradol 15 mg IV, and Zofran 4 mg IV for pain and nausea. I reviewed the patient's multiple previous ER visits and admission as summarized above. White blood cell count elevated at 12 with an elevated hemoglobin of 16.9. Total bilirubin elevated at 1.2, but CMP otherwise essentially unremarkable. Urine test negative. COVID-negative. I spoke with Dr. Schmidt of oral maxillofacial surgery regarding the patient. He had previously reviewed the patient's imaging during one of her previous ER visits. He does not feel that repeat imaging is needed at this time. He recommended the patient be admitted for IV antibiotics and he would see the patient in consult to determine if and when I&D as well as definitive treatment would be most beneficial. He recommended starting the patient on IV clindamycin pending his evaluation. The patient was given clindamycin 900 mg IV. Please refer to Dr. Schmidt's note for further details. I then spoke with the on-call hospitalist who agreed to admit the patient for further evaluation and treatment. Please refer to their dictation for further details. The patient was admitted in stable condition. Impression & Plan Cellulitis and abscess of face, Dental abscess Discharge Plan Visit Data Chief Complaint: Dental/Oral Stated Complaint: INFECTED TOOTH, SWOLLEN FACE, REFERRED BY DOC ED Provider: Sergio Cortez ED Midlevel Provider: Halie Thomas Discharge Problem: Cellulitis and abscess of face, Dental abscess Patient Disposition: Admitted As Inpatient Condition: Good Discharge Instructions Interventions: ED Discharge Assessment Last Done: 08/26/22 18:38
[2022-08-26] MEDS ORDERED: ONDANSETRON INJ 2 MG/ML 2 ML VIAL IV STA (16:21)
[2022-08-26] MEDS ORDERED: KETOROLAC TROMETHAMINE 15 MG/ML VIAL IV STA (16:21)
[2022-08-26] MEDS ORDERED: SODIUM CHLORIDE 0.9% 1000ML 1,000 ML IV ONE (16:27)
[2022-08-26] MEDS ORDERED: CLINDAMYCIN/D5W 900 MG/50 ML BAG IV ONE (16:29)
[2022-08-26] MEDS ORDERED: cefTRIAXone SODIUM 2,000 MG/70 ML BAG IV STA (17:12)
[2022-08-26] MEDS ORDERED: VANCOMYCIN CONSULT ACTIVE PRN (17:12)
[2022-08-26] MEDS ORDERED: VANCOMYCIN HCL 1,500 MG in SODIUM CHLORIDE 0.9% 500 ML IV ONE (17:12)
[2022-08-26] MEDS ORDERED: metroNIDAZOLE 500 MG/100 ML BAG IV STA (17:12)
--- NOTE | 2022-08-26 17:17 | History & Physical Report ---
Date of Service August 26, 2022 Assessment & Plan (1) Cellulitis and abscess of face: Plan: Possibly improving on Augmentin but not definitive. Failed clindamycin. Will switch to vancomycin, ceftriaxone and metronidazole Noted recent allergy to Augmentin with hives. Will monitor closely for reaction to ceftriaxone. Already on prednisone. Consult ENT for consideration of incision and drainage (2) Allergic reaction: Plan: Will continue on prednisone from last admission Plan VTE Prophylaxis - low risk Diet - NPO Disposition - admit to med/surg Admission and Anticipated Discharge Date Admission Date: August 26, 2022 History of Present Illness Chief Complaint: Left facial swelling Primary Care Provider: DEA Castano Louise Morris is a 32 year old female who presents to the ER on advice of her dentist due to worsening facial cellulitis and dental abscess. She reports initially symptoms getting progressively worse from 2 weeks ago. Initially she was prescribed prednisone for what was thought to be an allergic reaction and initially seemed to help but returned after finishing the steroid. She [facility] 15 who diagnosed her with a dental infection and was treated with Augmentin. She was seen in the ER here on August 17 with more of a panic attack episode with facial CT at that time showing a small periapical cyst and left facial cellulitis with 2.2cm abscess. Discussed with the extrusion press adjuster maxillofacial surgeon and advised close follow up in his office at that time and to continue the Augmentin. She is unsure if her infection was truly getting better with Augmentin. On August 21 she presented with a rash with concern for an allergy to Augmentin with its hive like appearance. She was given a course of prednisone and switched to clindamycin. Two days later she was admitted overnight for the same rash as it was getting worse despite steroids requiring an epinephrine injection x2. She was on intravenous clindamycin during that stay. She has now been on clindamycin since August 21 and feels the swelling is not improving but feels the swelling is getting harder. No fever or chills. She followed up with a dentist in [place] today who recommended she return to the ER for IV antibiotics. Allergies Allergy/AdvReac Type Severity Reaction Status Date / Time amoxicillin [From Augmentin] Allergy Severe Severe Unverified 08/26/22 16:51 full body rash clavulanic acid Allergy Severe Severe Unverified 08/26/22 16:51 [From Augmentin] full body rash Penicillins Allergy Severe Hives Verified 08/26/22 16:51 Home Medications Medication Instructions Recorded Confirmed Type clindamycin HCl 150 mg capsule 450 mg PO Q8H 10 days #90 caps 08/21/22 08/26/22 Rx azelastine 0.05 % eye drops 1 drp OPB BID PRN Allergy Symptoms 08/23/22 08/26/22 History norethindrone acetate 1 mg-ethinyl 1 tab PO DAILY 08/23/22 08/26/22 History estradiol 20 mcg tablet (June) prednisone 10 mg tablet See Rx Instructions .Route 08/24/22 08/26/22 Rx .COMPLEX #18 tabs Past Med/Surg History Medical History No pertinent past medical history Surgical History H/O wisdom tooth extraction Social History Smoking Status: Never smoker Hx Alcohol Use: Yes Hx Substance Use: Yes Last Used Substance: Days (ago) Last Used Substance Other:: about 10 days ago. Substance Use Type Other:: Smokes medical marijuana some days. 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 Beliefs That Will Affect Care: None Current Living Situation: Spouse Feels Safe at Home: Yes Safety Concerns: Feels Safe At This Time Assistive Devices: Glasses Review of Systems Review of Systems: All systems reviewed & are unremarkable except as noted in HPI & below Physical Exam Constitutional: WD/WN, vitals as above Eyes: + anicteric sclerae; normal pupil size ENMT: left upper swelling above molar tender to palpation Respiratory: normal respiratory effort, lungs clear to auscultation Cardiovascular: RRR, no murmur, no edema Gastrointestinal (Abdomen): normal bowel sounds, soft, nontender, no hepatosplenomegaly Skin: left cheek swelling with hard mass Neurologic: moves all extremities and awake; not confused Psychiatric: A+Ox3, euthymic affect Results & Data Results & Data Vital Signs (Past 12 Hours) Vital Signs Temp Pulse Resp BP Pulse Ox O2 Del Method 08/26/22 15:15 37.0 C 08/26/22 14:52 36.8 C 90 18 159/112 H 100 Room Air Laboratory Results Abnormal lab results 08/26/22 08/26/22 Range/Units 15:20 15:20 WBC 12.00 H (4.8-10.8) K/ul RBC 5.49 H (4.20-5.40) M/uL Hgb 16.9 H (12.0-16.0) g/dl Hct 48.7 H (37.0-47.0) % Neut # (Auto) 9.37 H (1.40-6.50) K/uL [place] # (Auto) 0.84 H (0.11-0.59) K/uL Total Bilirubin 1.2 H (0.2-1.0) mg/dl Total Protein 8.4 H (6.0-8.3) gm/dl Medications Administered ER Medications Given: Toradol 15mg IV Ondansetron 4mg IV NSS 1L bolus Clindamycin 900mg IV Code Status & VTE Plan Code Status Full VTE Prophylaxis Plan VTE Prophylaxis will be ordered: Yes PG Care Time/CCT Total # of Minutes Spent Total Time Spent with Patient: Total time spent is greater than 50% in coordination of care (as documented) at patient's floor/unit and/or counseling patient: Coding Level of Care Code 38944 INT INP/OBS CARE 2/55MIN Diagnoses Cellulitis and abscess of face L03.211; L02.01 Allergic reaction T78.40XA
[2022-08-26] MEDS ORDERED: VANCOMYCIN HCL 1,750 MG in SODIUM CHLORIDE 0.9% 500 ML IV ONE (17:30)
--- NOTE | 2022-08-26 19:27 | Oral/Maxillofacial Consult ---
Date of Consultation August 26, 2022 Assessment & Plan (1) Cellulitis and abscess of face: (2) Dental abscess: (3) Anaphylaxis: (4) Allergic drug reaction: (5) Allergic reaction: History of Present Illness Attending Physician: Viktor Cleveland MD History of Present Illness Oral Maxillofacial Surgery Exam Present Complaint: I have pain/swelling/drainage from my upper left cheek Symptoms have been ongoing for about 2 weeks Looks to be from tooth # 13 as per her dentist in [place]. Dentist was very concerned over the facial swelling which has gotten worse since changing to Clindamycin due to allergic reaction with Augmentin. Oral Exam: Finding--Significant vestibular swelling left mucosal and cheek area, tender g ingival tissue with deep pocket formation.After recover from I and D will need root canal # 31 which is clinical indicated. Imaging: CT facial bones w con HISTORY: 32 years-old Female left maxillary swelling acute left-sided facial pain with possible soft tissue infection FINDINGS: Imaged intracranial structures are unremarkable. The imaged vascular structures are within normal limits. The orbits are unremarkable. Peripherally enhancing left maxillary fluid collection with deep margin abutting the alveolar ridge measuring 2.2 x 1.0 x 1.7 cm.. This is centered around a small periapical cyst of the left maxillary second bicuspid which also demonstrates an apparent dental maranda. Mild adjacent cellulitis. No acute facial bone fracture. Patent airway. No lymphadenopathy. IMPRESSION: 1. Small periapical cyst of the left maxillary second bicuspid with associated subtle anterior maxillary cortical dehiscence. 2. Left facial cellulitis with 2.2 cm abscess. Soft tissue: The above finding clinically stated to improve with Augmentin. Due to an allergic reaction she was taken off the Augmentin and switched to Clindamycin--Unfortunately this antibiotic in the oral form was not effective and the swelling got much worse leading to this admission and planned I&D. Complete obliteration of the upper left mucobuccal fold secondary to this large abscess. The floor of the mouth, tongue, hard/soft palate, posterior pharyngeal area all with in normal limits, no pathology or abnormal findings noted. No lesions noted that require follow up or Bx. Oral Care: Overall oral care is good Occlusion: Class I TMJ exam: No pop, clicking, pain, good ROM, No history of TMJ injury or dysfunction Periodontal exam: Healthy gingival tissue without evidence of periodontal pathology. Except upper left side secondary to the current issues. Head/Neck exam: Swollen left mid cheek with soft tissue induration and ecchymosis Neck is supple, FROM, Able to extend and flex neck w/o difficulty, no masses, no abnormalities, no airway issues, no evidence of sleep apnea. Treatment Plan: Diet Now, NPO midnight, for OR tomorrow AM--I arranged with Kenan= supervisor mold shop Set up with general anesthesia in hospital due to complexity of the procedure I reviewed the treatment plan and consent with the patient and her . Understanding was expressed. Time was given for questions regarding the surgery, risks and post op care. Discussed alternative to treatment--NONE procedure as planned, Risks discussed: Bleeding,Pain,swelling,infection, delayed healing, nerve injury to face,lips,tongue,chin area which could be permanent (rare). TMJ, jaw stiffness, change in bite (rare), ear pain (referred). Sinus problems like fistula or infection. Need to place and remove [place] drain Home care reviewed: tooth brushing, rinsing, follow up care with Dr Schmidt. Need for follow up with her dentist in [place] or local dentist once the infection is well controlled. diet=[id number] dental. Discussed activity level, driving/work while on Rx pain Meds. I and D will be set as emergency add on in the OR Sunday morning August 27, 2022. Allergies Allergy/AdvReac Type Severity Reaction Status Date / Time amoxicillin [From Augmentin] Allergy Severe Severe Unverified 08/26/22 16:51 full body rash clavulanic acid Allergy Severe Severe Unverified 08/26/22 16:51 [From Augmentin] full body rash Penicillins Allergy Severe Hives Verified 08/26/22 16:51 Home Medications Medication Instructions Recorded Confirmed Type clindamycin HCl 150 mg capsule 450 mg PO Q8H 10 days #90 caps 08/21/22 08/26/22 Rx azelastine 0.05 % eye drops 1 drp OPB BID PRN Allergy Symptoms 08/23/22 08/26/22 History norethindrone acetate 1 mg-ethinyl 1 tab PO DAILY 08/23/22 08/26/22 History estradiol 20 mcg tablet (Junel) prednisone 10 mg tablet See Rx Instructions .Route 08/24/22 08/26/22 Rx .COMPLEX #18 tabs Patient History Medical History No pertinent past medical history Surgical History H/O wisdom tooth extraction Social History Smoking Status: Never smoker Hx Alcohol Use: Yes Hx Substance Use: Yes Last Used Substance: Days (ago) Last Used Substance Other:: about 10 days ago. Substance Use Type Other:: Smokes medical marijuana some days. 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 suspect # 13 Cheek swollen and indurated Neck trachea midline, no thyromegaly Thyroid: normal thyroid Respiratory normal respiratory effort, lungs clear to auscultation Auscultation: lungs clear to auscultation bilaterally Skin no rashes, warm and dry, noted redness, swelling and facial abscess left cheek Neurologic PERRL, EOMI, accommodation nl, no face palsy, no dysarthria Cranial Nerves: sense of smell intact, PERRL, normal accommodation, EOM intact bilaterally, normal facial strength, tongue midline, normal gag reflex, normal hearing, able to rotate head bilaterally, able to elevate shoulders bilaterally, no nystagmus and symmetric palate elevation Psychiatric A+Ox3, euthymic affect Orientation: cooperative Lymphatic no cervical or axillary lymphadenopathy Results & Data Vital Signs (Past 12 Hours) Vital Signs Temp Pulse Pulse Resp BP BP Pulse Ox 08/26/22 18:44 119/75 08/26/22 17:39 58 L 16 98 08/26/22 15:15 37.0 C 08/26/22 14:52 36.8 C 90 18 159/112 H 100 O2 Del Method 08/26/22 18:44 08/26/22 17:39 08/26/22 15:15 08/26/22 14:52 Room Air PG Care Time/CCT Total # of Minutes Spent Total Time Spent with Patient: Total time spent is greater than 50% in coordination of care (as documented) at patient's floor/unit and/or counseling patient: Coding Level of Care Code 05872 IN/OBS CONSULT LVL 3,45M Diagnoses Cellulitis and abscess of face L03.211; L02.01 Dental abscess K04.7 Anaphylaxis T78.2XXD Encounter type: subsequent encounter Allergic drug reaction T78.40XD Encounter type: subsequent encounter Allergic reaction T78.40XA (3) Anaphylaxis Encounter type: subsequent encounter Qualified Code(s): T78.2XXD - Anaphylactic shock, unspecified, subsequent encounter (4) Allergic drug reaction Encounter type: subsequent encounter Qualified Code(s): T78.40XD - Allergy, unspecified, subsequent encounter
--- NOTE | 2022-08-26 20:13 | Pharmacy Report ---
Pharmacy Vanc AUC Short Note - Date of Service August 26, 2022 - Assessment & Plan Assessment 32 year old F receiving vancomycin for treatment of EENT (facial abscess). Day #1 of antimicrobial therapy: 08/26/22 Plan Vancomycin * Load: Vancomycin 1,750 mg IV once on 08/26/22 at 1841. * Maintenance: Vancomycin 1,000 mg IV q12h starting 08/27/22 at 0500. * AUC/RYANNE is the preferred PK/PD target for vancomycin * AUC guided dosing is effective and associated with decreased risk of nephrotoxicity compared to traditional trough targets * Trough level of 585 mcg/mL is predicted to achieve target AUC/RYANNE of 400-600 mg/L.hr and may be associated with a 15% risk of nephrotoxicity * Trough or random level ordered for: 08/28/22 at 0400 Pharmacy will continue to follow and will adjust dose/frequency as necessary. Thank you.
[2022-08-26] MEDS: predniSONE 10 MG TABLET PO SCH (20:30)
[2022-08-26 20:46] LABS: Pregnancy Test, Urine Negative (Negative)
[2022-08-26] MEDS: PLASMA-LYTE A 1,000 ML IV SCH (21:37)
[2022-08-26] MEDS ORDERED: FEXOFENADINE 60 MG TAB PO PRN (23:11)
[2022-08-26] MEDS ORDERED: ACETAMINOPHEN 1,000 MG/100 ML VIAL IV PRN (23:12)
[2022-08-27] MEDS: metroNIDAZOLE 500 MG/100 ML BAG IV SCH ×2 (03:04→10:33)
[2022-08-27] MEDS ORDERED: VANCOMYCIN HCL 1,000 MG in SODIUM CHLORIDE 0.9% 250 ML IV SCH (05:00)
[2022-08-27] MEDS: PLASMA-LYTE A 1,000 ML IV SCH (05:29)
[2022-08-27 06:46] LABS: Basophils # (auto) 0.02 K/uL (0-0.2); Basophils % (auto) 0.2 %; Eosinophils # (auto) 0.44 K/uL (0-0.50); Eosinophils % (auto) 5.1 %; Hemoglobin 13.9 g/dl (12.0-16.0); Immature Granulocytes # (auto) 0.04 K/uL (0.01-0.20); Immature Granulocytes % (auto) 0.5 %; Lymphocytes # (auto) 1.36 K/uL (1.2-3.4); Lymphocytes % (auto) 15.7 %; Mean Corpuscular Hemoglobin 30.5 pg (25.0-34.0); Mean Corpuscular Hgb Conc 33.9 g/dL (32.0-36.0); Mean Corpuscular Volume 90.1 fL (80.0-100.0); Monocytes # (auto) 0.61 K/uL (0.11-0.59); Neutrophils # (auto) 6.21 K/uL (1.40-6.50); Neutrophils % (auto) 71.5 %; Platelet Count 201 K/uL (130-400); RDW Coefficient of Variation 11.9 % (11.5-14.5); RDW Standard Deviation 39.3 fL (36.4-46.3); Red Blood Count 4.55 M/uL (4.20-5.40); White Blood Count 8.68 K/ul (4.8-10.8)
[2022-08-27 06:54] LABS: BUN Creatinine Ratio 11.1 (10-20); Calcium 8.5 mg/dl (8.6-10.3); Creatinine Clr Calc Pharmacy 88.3 ml/min; Est GFR (African American) 97.4 ml/min; Potassium 4.3 mmol/L (3.5-5.1)
--- NOTE | 2022-08-27 06:54 | Anesthesiology Consultation ---
Date of Service August 27, 2022 Assessment & Plan (1) Encounter for pre-operative examination: Chart Review Chart Review: Acceptable Risk for Surgery and Patient NOT seen in Pre Admission Testing Consults Requested none History Surgery Operation Date: 08/27/22 09:00 Proposed Procedures p M. Facial Incision and Drainage - Vladislav Schmidt DMD Height/Weight Height: 5 ft 5 in Weight: 71.8 kg Allergies Allergy/AdvReac Type Severity Reaction Status Date / Time amoxicillin [From Augmentin] Allergy Severe Severe Unverified 08/26/22 16:51 full body rash clavulanic acid Allergy Severe Severe Unverified 08/26/22 16:51 [From Augmentin] full body rash Penicillins Allergy Severe Hives Verified 08/26/22 16:51 Medications Home Medications Medication Instructions Recorded Confirmed Last Taken clindamycin HCl 150 mg capsule 450 mg PO Q8H 10 days #90 caps 08/21/22 08/26/22 08/26/22 azelastine 0.05 % eye drops 1 drp OPB BID PRN Allergy Symptoms 08/23/22 08/26/22 08/25/22 norethindrone acetate 1 mg-ethinyl 1 tab PO DAILY 08/23/22 08/26/22 08/25/22 estradiol 20 mcg tablet (Junel) prednisone 10 mg tablet See Rx Instructions .Route 08/24/22 08/26/22 08/26/22 .COMPLEX #18 tabs Active Medications Generic Name Dose Route Start Last Admin Trade Name Freq PRN Reason Stop Dose Admin Parenteral Electrolytes 1,000 mls @ 125 mls/hr 08/26/22 19:14 08/27/22 05:29 Plasma-Lyte A Ph 7.4 IV 08/27/22 11:13 125 mls/hr .Q8H SHARON Administration Vancomycin HCl 1,000 mg/ 270 mls @ 200 mls/hr 08/27/22 05:00 08/27/22 05:23 Sodium Chloride IV 09/06/22 04:59 200 mls/hr Q12H SHARON Administration Metronidazole 500 mg in 100 mls @ 100 mls/hr 08/27/22 02:00 08/27/22 04:10 Flagyl IV 09/06/22 01:59 Infused Q8H SHARON Infusion Protocol Miscellaneous 1 each 08/26/22 20:00 08/26/22 23:42 Norethindrone Ac-Eth Estradiol [June03/17 (21)] 1-20 Mg-Mcg Tab- Order Awaiting Action N/A 09/25/22 19:59 Not Given QS SHARON Prednisone 10 mg 08/26/22 21:00 08/26/22 20:30 Prednisone 10 Mg Tablet PO 09/25/22 20:59 10 mg BID SHARON Administration NPO Date Last Intake of Fluids: 08/26/22 Time Last Intake of Fluids: 22:00 Past Medical History Medical History No pertinent past medical history Past Surgical History Surgical History H/O wisdom tooth extraction Social History Smoking Status: Never smoker Hx Alcohol Use: Yes alcohol intake frequency: holidays/special occasions only Hx Substance Use: Yes substance use type: marijuana Substance Use Type Other:: Smokes medical marijuana some days. Last Used Substance: Days (ago) Last Used Substance Other:: about 10 days ago. Physical Exam Vital Signs Last Vital Signs Temp 98.1 F 08/26/22 19:15 Pulse 67 08/26/22 19:15 Resp 16 08/26/22 19:15 BP 131/81 08/26/22 19:15 Pulse Ox 100 08/26/22 19:15 O2 Del Method Room Air 08/26/22 19:15 Testing Laboratory Results 08/27/22 06:13 Urine Test Negative (Negative) 08/26/22 20:31 08/26/22 20:31 Urine Test Negative
[2022-08-27] MEDS ORDERED: FAMOTIDINE/PF 20 MG/2 ML VIAL IV ONE (07:08)
[2022-08-27] MEDS ORDERED: ATROPINE SULFATE 0.1 MG/ML 10ML SYR IV PRN (08:18)
[2022-08-27] MEDS ORDERED: ONDANSETRON INJ 2 MG/ML 2 ML VIAL IV PRN (08:18)
[2022-08-27] MEDS ORDERED: ePHEDrine sulfate 50 MG/ML AMP IV PRN (08:18)
[2022-08-27] MEDS ORDERED: fentaNYL citrate PF 100 MCG/2 ML VIAL IV PRN (08:18)
--- NOTE | 2022-08-27 08:19 | History & Physical Bridge Note ---
Date of Service August 27, 2022 History & Physical Bridge Note I have examined the patient, reviewed the History & Physical and in the interval since the performance of the History & Physical I have noted the following changes of clinical significance: no changes noted We will plan the I and D this morning
[2022-08-27] MEDS ORDERED: BUPIVACAINE/EPINEPHRINE 0.5% 1:200,000 1.8 ML CARP ONE (08:22)
[2022-08-27] MEDS ORDERED: MIDAZOLAM HCL 1 MG/ML 2ML VIAL ONE (08:24)
[2022-08-27] MEDS ORDERED: CHLORHEXIDINE GLUCONATE 0.12% 480 ML MT ONE (08:24)
[2022-08-27] MEDS ORDERED: fentaNYL citrate PF 100 MCG/2 ML VIAL ONE (08:24)
[2022-08-27] MEDS ORDERED: PROPOFOL IV EMULSION 10 MG/ML 20 ML VIAL IV ONE (08:25)
[2022-08-27] MEDS ORDERED: LIDOCAINE 2% 2 ML VIAL/AMP(20MG/ML) INFIL ONE (08:25)
[2022-08-27] MEDS ORDERED: ROCURONIUM BROMIDE 10 MG/ML 5 ML VIAL IV ONE (08:25)
[2022-08-27] MEDS ORDERED: SCOPOLAMINE 1 MG TDSY TD ONE (08:35)
[2022-08-27] MEDS ORDERED: NEOSTIGMINE METHYLSULFATE 1 MG/ML 10ML VIAL ONE (09:03)
[2022-08-27] MEDS ORDERED: GLYCOPYRROLATE 0.2 MG/ML VIAL ONE (09:03)
--- NOTE | 2022-08-27 09:21 | Operative Report ---
PG Post Operative Report Pre & Post Diagnosis Operation Date: 08/27/22 09:00 Pre-Op Diagnosis: Cellulitis and abscess of face, left Dental abscess Post-Op Diagnosis: Cellulitis and abscess of face, left Dental abscess I identified the patient and participated in the time-out.: Yes Procedure Operation Date: 08/27/22 09:00 Actual Procedures p Left Facial Incision and Drainage(Left) - Vladislav Schmidt DMD Surgeon Vladislav Schmidt DMD Casino Worker none Estimated Blood Loss 5 Findings Consistent with Post-Op Diagnosis acute infection upper left vestibular space and infrorbital space Specimens C and S from infection left facial space Drains 1/4 Adrian Anesthesia Type General Complications none Indications infection and abscess not responding to out patient therapy Description of Procedure p Incision and Drainage left maxillary vestibule and infraorbital space Abscess; - Vladislav Schmidt DMD ICD 10 K12.2 , L03.211 CPT 97096 I & D of deep subcutaneous abscess of the inferior orbital and vestibular space of left maxilla Once cleared for surgery general anesthesia was achieved, the eyes were protected by the anesthesia dept criteria. A time out was take for patient ID, antibiotics, equipment and position verification once all agreed the procedure began. Local anesthesia using Marcaine with a vasoconstrictor ( 1.8 ml per site) given into left posterior maxilla A throat pack was placed after the oral cavity was irrigated with saline. Once a surgical level of anesthesia was obtained and the local anesthesia was given time for the blocks the surgery was started. I turned my attention to the infection which was located in the in the left cheek,left vestibule, left tuberosity area, Infraorbital fossa area CT scan report--1. 1.9 x 1.3 cm rim-enhancing left facial fluid collection along the lateral aspect of the left maxilla. This favors a small abscess. This is odontogenic although definitive source is not identified on this exam Incision and Drainage Using a 15 blade an incision was made in the posterior aspect of the vestibular area upper left side. Once the incision was made a lot of pus extruded from the site. This drainage was cultured for anaerobic and aerobic bacteria. A curved hemostat was carefully placed superior into the infected space to drain the infraorbital space. To gain access to the pocket of pus in the cheek another incision was made in the vestibule. This allowed further drainage to escape. I palpated the face and cheek area and no further drainage was expressed. The area was irrigated with at least 100 ml of NS solution. I now placed a small 1/4 inch Adrian drain up into the infraorbital space and sutured the drain in place with a few 3-0 chromics. Louise will be followed in my office in a few days for drain removal. The site was inspected to insure all bleeding was controlled. I removed the throat pack and suctioned the throat. A gauze pressure dressings were placed. All instrument and sponge count was correct. The patient was allowed to awake from the anesthesia. Once full awake the anesthesia tube was removed and the patient was taken to the recovery room with all vital sign stable. The patient tolerated the surgery very well. I will follow the patient in my office, Rx and instructions will be given upon discharge. . I attest to the content of the Intraoperative Record and any orders documented therein. Any exceptions are noted below.
--- NOTE | 2022-08-27 09:49 | Anesthesiology Progress Note ---
Date of Service August 27, 2022 Anesthesia Post Procedure Vital Signs Vital Signs: Temp Pulse Pulse Pulse Resp BP BP 08/27/22 09:40 97.9 F 59 L 16 132/85 08/27/22 09:30 76 14 122/67 08/27/22 09:22 96.8 F L 98 H 18 100/64 08/27/22 07:19 97.9 F 61 16 121/85 08/26/22 19:15 98.1 F 67 16 131/81 08/26/22 18:44 119/75 08/26/22 17:39 58 L 16 08/26/22 15:15 98.6 F 08/26/22 14:52 98.2 F 90 18 159/112 H Pulse Ox O2 Del Method O2 Flow Rate 08/27/22 09:40 99 Room Air 08/27/22 09:30 100 Room Air 08/27/22 09:22 98 Nasal Cannula 3 08/27/22 07:19 99 Room Air 08/26/22 19:15 100 Room Air 08/26/22 18:44 08/26/22 17:39 98 08/26/22 15:15 08/26/22 14:52 100 Room Air Pain Intensity Left Face: Pain Intensity: 1 Transfer of Care Handoff Completed per policy Notes Mental Status: alert / awake / arousable and participated in evaluation Patient Amnestic to Procedure: Yes Nausea / Vomiting: adequately controlled Pain: adequately controlled Airway Patency, RR, SpO2: stable & adequate BP & HR: stable & adequate Hydration State: stable & adequate Anesthetic Complications: no major complications apparent and Pt Satisfied with anesthetic care
[2022-08-27] MEDS: predniSONE 10 MG TABLET PO SCH ×2 (10:34→20:53)
--- NOTE | 2022-08-27 13:20 | Hospitalist Progress Note ---
Date of Service August 27, 2022 Assessment & Plan (1) Cellulitis and abscess of face: Plan: Acute/stable - moderate risk - ?Possibly improving on Augmentin but not definitive but stopped due to drug reaction - Placed on clindamycin at time of discharge but was not on it for >48 hours prior to returning to hospital with swelling/pain. - Admitting team placed her on regimen of Vanco, Flagyl, and Rocephin - This is not practical for a d/c regimen and she did not fail the course of Clindamycin given duration - Will place back on Clindamycin 300mg IV q6 - only requires 72 hours following I&D per clin-pharm - Dr. Schmidt consulted and performed I&D of dental abscess on 08/27 - Blood cultures collected and pending - CBC reviewed this AM, no leukocytosis, chart reviewed, no fever or tachycardia - Pain control ordered with IV APAP - Ice PRN (2) Allergic reaction: Plan: Acute/stable - Complete prednisone taper from last admission Plan Low risk for VTE therefore not ordered. She can ambulate as tolerated. Observe today and plan for d/c home tomorrow to complete course of Clindamycin and complete Prednisone taper. No labs ordered for tomorrow AM. Did reach out to Dr. Schmidt regarding gauze removal - will update nursing when he replies. Plan d/w Dr. Richards, plan as outlined above. Admission and Anticipated Discharge Date Admission Date: August 26, 2022 Supervising Physician Co-Signing Physician Notes The patient was not seen by me. The chart was reviewed. Case discussed with ZACHARY Joyce. Agree with assessment and plan Subjective Patient seen on daily rounds today. She is freshly out of the OR from her I&D of dental abscess by Dr. Schmidt. She is currently c/o only mild discomfort and asking when the gauze can be removed from her mouth. No cp or dyspnea, n/v. Physical Exam Physical Exam: GENERAL: 32 y/o wd/wn healthy F. AAOx4. NAD. HENT: obvious left sided facial swelling, packing noted inside mouth LUNGS: Clear to auscultation bilaterally w/o W/R/R. CARDIOVASCULAR: Regular rate and rhythm. Results & Data Results & Data Vital Signs (Past 12 Hours) Vital Signs Temp Pulse Pulse Resp BP Pulse Ox O2 Del Method 08/27/22 12:08 36.6 C 68 16 102/74 100 Room Air 08/27/22 11:04 36.6 C 68 16 124/84 100 Room Air 08/27/22 10:36 36.5 C 53 L 14 132/86 99 Room Air 08/27/22 10:06 36.6 C 14 137/84 100 Room Air 08/27/22 09:50 60 12 133/83 99 Room Air 08/27/22 09:40 36.6 C 59 L 16 132/85 99 Room Air 08/27/22 09:30 76 14 122/67 100 Room Air 08/27/22 09:22 36.0 C L 98 H 18 100/64 98 Nasal Cannula 08/27/22 07:19 36.6 C 61 16 121/85 99 Room Air O2 Flow Rate 08/27/22 12:08 08/27/22 11:04 08/27/22 10:36 08/27/22 10:06 08/27/22 09:50 08/27/22 09:40 08/27/22 09:30 08/27/22 09:22 3 08/27/22 07:19 Laboratory Results 08/27/22 06:13 08/27/22 06:13 PG Care Time/CCT Total # of Minutes Spent Total Time Spent with Patient: Total time spent is greater than 50% in coordination of care (as documented) at patient's floor/unit and/or counseling patient: Coding Level of Care Code 89779 SUB INP/OBS CARE 2/35MIN Diagnoses Cellulitis and abscess of face L03.211; L02.01 Allergic reaction T78.40XA
[2022-08-27] MEDS: CLINDAMYCIN/D5W 300 MG/50 ML BAG IV SCH ×2 (14:19→20:02)
[2022-08-27] MEDS ORDERED: cefTRIAXone SODIUM 2,000 MG in DEXTROSE 5% 50 ML IV SCH (17:00)
[2022-08-28] MEDS: CLINDAMYCIN/D5W 300 MG/50 ML BAG IV SCH ×2 (01:25→06:43)
[2022-08-28] MEDS ORDERED: VANCOMYCIN LEVEL ONE (04:00)
[2022-08-28 04:44] LABS: Creatinine Clr Calc Pharmacy 87.3 ml/min; Est GFR (African American) 96.1 ml/min; Est GFR (Non-African American) 82.9 ml/min
[2022-08-28] MEDS: predniSONE 10 MG TABLET PO SCH (08:50)
--- NOTE | 2022-08-28 10:05 | Oral/Maxillofacial Progress Nt ---
Date of Service August 28, 2022 Assessment & Plan Admission and Anticipated Discharge Date Admission Date: August 26, 2022 Subjective Post Op infection evaluation 24 hours The infected area has responded ng very well. Swelling is going down (about 75 %) and the tissue is healing well Still some drainage as expected Drain will be removed in my office Cultures were reviewed. Infection has responded very well to the antibiotics and the I and D. I requested that the patient continue with massage, heat and wound care. At this time the area has responded very well and responded well to treatment. RTC at 3:30 for follow up care. Results & Data Vital Signs (Past 12 Hours) Vital Signs Temp Pulse Resp BP Pulse Ox O2 Del Method 08/28/22 07:53 36.7 C 53 L 16 113/76 98 Room Air 08/28/22 03:48 36.7 C 60 16 113/72 98 Room Air 08/27/22 22:55 36.6 C 73 16 115/76 97 Room Air PG Care Time/CCT Total # of Minutes Spent Total Time Spent with Patient: Total time spent is greater than 50% in coordination of care (as documented) at patient's floor/unit and/or counseling patient: Coding Level of Care Code None Diagnoses
--- NOTE | 2022-08-28 10:44 | Discharge Summary ---
Date of Service August 28, 2022 Admission HPI Per Admitting Provider Louise Morris is a 32 year old female who presents to the ER on advice of her dentist due to worsening facial cellulitis and dental abscess. She reports initially symptoms getting progressively worse from 2 weeks ago. Initially she was prescribed prednisone for what was thought to be an allergic reaction and initially seemed to help but returned after finishing the steroid. She then presented to [facility] on August 15 who diagnosed her with a dental infection and was treated with Augmentin. She was seen in the ER here on August 17 with more of a panic attack episode with facial CT at that time showing a small periapical cyst and left facial cellulitis with 2.2cm abscess. Discussed with the sponge press operator maxillofacial surgeon and advised close follow up in his office at that time and to continue the Augmentin. She is unsure if her infection was truly getting better with Augmentin. On August 21 she presented with a rash with concern for an allergy to Augmentin with its hive like appearance. She was given a course of prednisone and switched to clindamycin. Two days later she was admitted overnight for the same rash as it was getting worse despite steroids requiring an epinephrine injection x2. She was on intravenous clindamycin during that stay. She has now been on clindamycin since August 21 and feels the swelling is not improving but feels the swelling is getting harder. No fever or chills. She followed up with a dentist in [place] today who recommended she return to the ER for IV antibiotics. Principal Diagnosis Left maxillary dental abscess, resolving penicillin induced rash/dermatitis Discharge Exam General-alert and oriented x3, no fevers, no chills HEENT-head atraumatic and normocephalic, pupils equal and reactive to light, extraocular muscles intact. Left facial edema noted without erythema Neck-no lymphadenopathy or thyromegaly, trachea midline Chest-clear to auscultation percussion. No rales, wheezing or rhonchi Cardiac-regular rate and rhythm, normal S1 and S2 Abdomen-normal bowel sounds, nontender, no hepatosplenomegaly Extremities-no cyanosis, clubbing, or edema Skinresolving rash, nearly gone Neuro-cranial nerves II through XII intact, motor and sensory function within normal limits, strength symmetrical , no focal deficits Psych-normal affect, normal mood Discharge Data Allergies Allergy/AdvReac Type Severity Reaction Status Date / Time amoxicillin [From Augmentin] Allergy Severe Severe Unverified 08/26/22 16:51 full body rash clavulanic acid Allergy Severe Severe Unverified 08/26/22 16:51 [From Augmentin] full body rash Penicillins Allergy Severe Hives Verified 08/26/22 16:51 Consultations 08/26/22 16:51 ED Decision to Admit Stat 08/26/22 17:14 Consult Otolaryngology (Head and Neck) Routine Procedures Performed Operation Date: 08/27/22 09:00 Actual Procedures p Left Facial Incision and Drainage(Left) - Vladislav Schmidt DMD Hospital Course (1) Cellulitis and abscess of face: Left maxillary tooth dental abscess. She underwent incision and drainage by Dr. Schmidt. She will need a root canal at a later date. She was recently discontinued from amoxicillin due to what appeared to be a penicillin rash. She has been taking prednisone and the rash has nearly completely resolved. She is now on Cleocin which we will continue at discharge. (2) Allergic reaction: From penicillin. Nearly totally resolved. Prednisone can be discontinued at this time Plan Continue Cleocin. Follow-up with Dr. Schmidt as an outpatient for definitive root canal of the affected left maxillary tooth. Home today, August 28 Total Time Total Time Spent Total Time Spent (In Minutes): 40 minutes Discharge Plan Discharge Items Patient Disposition: Home - Self-Care Reason For Visit: FACIAL CELLULITIS WITH ABSCESS Discharge Diagnosis: s/p facila infection Condition on Discharge: Good Activity: Resume your previous activity Lifting: Gradually increase as tolerated Bathing: No limitations Exercise/Sports: Gradually increase as tolerated Driving/Machine Use: Resume 1 day after discharge Weightbearing: Full weightbearing Non-emergency contact: Surgeon Call non-emergency contact if: your temperature is above 101.5, your wound has increased redness, your wound has increased drainage and your wound pain has increased Follow-up/Referrals: Maria R Salinas CRNP [Primary Care Provider] - Vladislav Schmidt DMD [Physician] - Diet: Regular Diet Texture: Easy to Chew Addtl Attending Provider Instructions: ADDITIONAL ACTIVITY RECOMMENDATIONS: * [place] teeth after every meal. It is very important to keep your mouth clean to prevent infection. * Starting tonight rinse with the Peridex as directed then 2 x a day * it is very important to keep well hydrated, this prevents fever SPECIAL CARE INSTRUCTIONS: *It is not uncommon that between day 2-4 that your swelling will be at its worst this is very normal, do not be alarmed. * Tomorrow start rinsing your mouth with 1/2 teaspoon salt in 8 ounces warm water. This rinse should be used every 4-6 hours. * You may experience slight nausea. To prevent this, never take your medication on an empty stomach. If nauseated, take small sips of gege jimena until you feel better; then you may start on applesauce and toast. * Some swelling is common. It should gradually decrease within 4-5 days. * A certain amount of bleeding is to be expected. It is often possible to control mild oozing by placing folded gauze over the area and biting down for 30 minutes. If you are unable to control excessive bleeding, call Dr Schmidt at [phone] * You may experience some discomfort for a few days. If pain or swelling increases, Call Dr Schmidt * Return to the office for a follow up check up on: SundayAUGUST 31 at 2:30pm * office address--[facility] [place] [address] phone # [phone] Pending Studies at Discharge: Yes Studies:: results from [facility]Alone Forms: My [facility] [place] [employer], Smoking Cessation Medications and DC Order Prescriptions: Continued oxycodone 5 mg tablet 5 mg PO Q3H PRN (Reason: pain) Qty: 14 0RF clindamycin HCl 150 mg capsule 450 mg PO Q8H 10 Days Qty: 90 0RF Rx Instructions: Start Date 08/21/22 - End Date 09/20/22 azelastine 0.05 % drops 1 drp OPB BID PRN (Reason: Allergy Symptoms) norethindrone ac-eth estradiol [03/17 (21)] 1-20 mg-mcg tablet 1 tab PO DAILY Discontinued prednisone 10 mg tablet See Rx Instructions .ROUTE .COMPLEX Qty: 18 0RF Rx Instructions: 10 mg orally 3 times a day for 3 days, then 10 mg twice a day for 3 days, then 10 mg once a day for 3 days, then stop. Start Date 08/24/22 - End Date 09/02/22 Discharge Orders: Discharge Order (Routine); Ordered 08/28/22 Ordered By: Don Whittaker/Other Patient Handouts: Dental Abscess, Understanding Root Canal: Overview, Dental Abscess Facial Cellulitis Admission Data Admit Date/Time: 08/26/22 17:12 Attending Provider: Don Richards Admit Provider: Viktor Cleveland Primary Care Provider: Maria R Salinas Other Providers: Viktor Cleveland ; Vladislav Schmidt Coding Level of Care Code 01787 INP/OBS DISCH >30 MIN Diagnoses Cellulitis and abscess of face L03.211; L02.01 Allergic reaction T78.40XA
== END 2022-08-28 13:14 | disposition home or self-care (01) | DRG 158 ==
LOC: ED 14:45 → 3W 17:12 → SUATTDRO 17:12 → 3W 18:38